=== PATIENT | female | born 1980 | race Hispanic/Latino ===

== ENCOUNTER 2017-05-27 21:18 | Emergency (ER) | payer OTHER, SELFPAY ==
[~2017-05-27 21:18] MED LIST: Sodium Chloride 0.9% 1,000 ML BAG ONE
[2017-05-27 22:40] LABS: Clarity Hazy (Clear); Glucose, Urine (Dipstick) Negative (Negative); Leukocyte Negative (Negative); Nitrite Negative (Negative); Protein, Urine (Dipstick) 30 mg/dL (Neg-Trace)
[2017-05-27 22:41] LABS: Bilirubin Negative (Negative); Blood, Urine Negative (Negative)
[2017-05-27 22:43] LABS: Bacteria/HPF Rare-Few HPF (None Seen); RBC/HPF 0-3 HPF (0-3); Squamous Epithelial 0-3 HPF (0-3); WBC/HPF None Seen HPF (0-3)
[2017-05-27 22:48] LABS: #Basophils 0.1 thou/uL (0.0-0.2); #Eosinphils 0.1 thou/uL (0.0-0.7); #Lymphocytes 3.2 thou/uL (1.20-3.40); #Monocytes 0.5 thou/uL (0.11-0.59); #Neutrophils 7.4 thou/uL (1.40-6.50); %Basophils 0.8 % (0.0-1.0); %Eosinophils 0.6 % (0.0-10.0); %Lymphocytes 28.4 % (21.0-51.0); %Monocytes 4.1 % (0.0-10.0); %Neutrophils 66.1 % (42.0-75.0); Hemoglobin 13.3 g/dL (12.0-16.0); Mean Corpuscular HGB CONC 34.5 g/dL (32.0-36.0); Mean Corpuscular Hemoglobin 32.7 pg (27.0-31.0); Mean Corpuscular Volume 94.9 fl (81.0-99.0); Mean Platelet Volume 8.1 fL (7.4-10.4); Platelet Count 182 thou/uL (130-400); RBC Distribution Width 11.7 % (11.5-14.5); Red Blood Cell (RBC) Count 4.08 mill/uL (4.20-5.40); White Blood Cell (WBC) Count 11.2 thou/uL (4.8-10.8)
--- NOTE | 2017-05-27 22:51 | RAD ---
PORTABLE UPRIGHT FRONTAL CHEST RADIOGRAPH: Date: 05-27-17 Comparison: 05-24-11 History: Upper left abdominal pain. FINDINGS: Lungs are clear. Heart and mediastinal contours unremarkable. IMPRESSION: No acute findings. POS: [facility]
[2017-05-27] MEDS ORDERED: Ketorolac Tromethamine 30 MG/ML VIAL ONE (22:54)
[2017-05-27] MEDS ORDERED: Metoclopramide HCl 10 MG/2 ML VIAL ONE (22:54)
[2017-05-27] MEDS ORDERED: Ondansetron HCl/PF 4 MG/2 ML Vial ONE (22:54)
[2017-05-27 22:58] LABS: BHCG - Serum Negative (NEGATIVE); Pregs Control Background? CLEAR/WHITE (CLR/WHITE); Pregs Control Bar Appear? YES (CONTROL BAR)
[2017-05-27 23:13] LABS: ALT (SGPT) 18 U/L (8-55); AST (SGOT) 19 U/L (5-34); Albumin 4.1 g/dL (3.5-5.0); Alkaline Phosphatase 69 U/L (40-150); Anion Gap 17 mmol/L (10-20); BUN (Urea Nitrogen) 10 mg/dL (7.0-18.7); Bilirubin, Total 0.5 mg/dL (0.2-1.2); Calc. Creatinine Clearance 0 mL/min (70-130); Calcium 8.7 mg/dL (7.8-10.44); Carbon Dioxide 19 mmol/L (22-29); Chloride 105 mmol/L (98-107); Estimated GFR-MDRD Greater than 90; Globulin 4.4 g/dL (2.4-3.5); Glucose 86 mg/dL (70-105); Lipase 5 U/L (8-78); Potassium 3.4 mmol/L (3.5-5.1); Protein, Total 8.5 g/dL (6.0-8.3); Sodium 138 mmol/L (136-145)
[2017-05-27] MEDS ORDERED: metroNIDAZOLE 500 MG/100 ML BAG ONE (23:39)
[2017-05-27] MEDS ORDERED: Ciprofloxacin Lactate/D5W 400 mg/200 ml Premix ONE (23:39)
[2017-05-28] MEDS ORDERED: metroNIDAZOLE 250 MG TAB ONE (00:45)
== END 2017-05-28 00:58 | disposition home or self-care (01) ==
LOC: MADERS 21:18
DX: K57.92 Diverticulitis of intestine, part unspecified, without perforation or abscess without bleeding (principal); F17.210 Nicotine dependence, cigarettes, uncomplicated
CPT/HCPCS: 71010; 80053; 81001; 82150; 83690; 84703; 85025; 86140; 87086; 96361; 96365; 96375; J0744; J1885; J2405; J2765; J7050

== ENCOUNTER 2018-06-11 13:45 | Emergency (ER) | payer SELFPAY ==
[~2018-06-11 13:45] MED LIST changes: +Iopamidol 370 76% 100 ML VIAL ONE
[2018-06-11 14:39] LABS: Bilirubin Negative (Negative); Blood, Urine Negative (Negative); Clarity Clear (Clear); Glucose, Urine (Dipstick) Negative (Negative); Leukocyte Negative (Negative); Nitrite Negative (Negative); Protein, Urine (Dipstick) Negative (Neg-Trace); Urobilinogen 0.2 mg/dL (0.2-1.0)
[2018-06-11 14:46] LABS: #Eosinphils 0.1 thou/uL (0.0-0.7); #Monocytes 0.4 thou/uL (0.11-0.59); #Neutrophils 5.5 thou/uL (1.40-6.50); %Basophils 0.4 % (0.0-1.0); %Eosinophils 0.7 % (0.0-10.0); %Lymphocytes 24.8 % (21.0-51.0); %Monocytes 4.9 % (0.0-10.0); %Neutrophils 69.2 % (42.0-75.0); Hemoglobin 13.5 g/dL (12.0-16.0); Mean Corpuscular HGB CONC 33.2 g/dL (32.0-36.0); Mean Corpuscular Hemoglobin 30.1 pg (27.0-31.0); Mean Corpuscular Volume 90.7 fL (78.0-98.0); Platelet Count 263 thou/uL (130-400); RBC Distribution Width 12.4 % (11.5-14.5); Red Blood Cell (RBC) Count 4.49 mill/uL (4.20-5.40); White Blood Cell (WBC) Count 7.9 thou/uL (4.8-10.8)
[2018-06-11 14:57] LABS: ALT (SGPT) 19 U/L (8-55); AST (SGOT) 14 U/L (5-34); Albumin 4.1 g/dL (3.5-5.0); Alkaline Phosphatase 64 U/L (40-150); Anion Gap 15 mmol/L (10-20); BUN (Urea Nitrogen) 11 mg/dL (7.0-18.7); Bilirubin, Total 0.4 mg/dL (0.2-1.2); Calc. Creatinine Clearance 0 mL/min (70-130); Calcium 9.3 mg/dL (7.8-10.44); Carbon Dioxide 22 mmol/L (22-29); Chloride 107 mmol/L (98-107); Estimated GFR-MDRD Greater than 90; Globulin 3.8 g/dL (2.4-3.5); Glucose 85 mg/dL (70-105); Lipase 6 U/L (8-78); Potassium 3.6 mmol/L (3.5-5.1); Protein, Total 7.9 g/dL (6.0-8.3); Sodium 140 mmol/L (136-145)
[2018-06-11] MEDS ORDERED: Ketorolac Tromethamine 30 MG/ML VIAL ONE (15:23)
[2018-06-11] MEDS ORDERED: Ondansetron HCl/PF 4 MG/2 ML Vial ONE (15:23)
--- NOTE | 2018-06-11 15:41 | CT ---
CT ABDOMEN WITH CONTRAST CT PELVIS WITH CONTRAST: DATE: 06/11/18 HISTORY: 38-year-old female with left lower quadrant abdominal pain for two days. "History of gastrointestinal disease and diverticulitis." COMPARISON: 05/24/11. TECHNIQUE: IV injection of iodinated contrast media: 90 mL of Isovue. Oral contrast media: Not administered. FINDINGS: Lung bases are grossly clear. The abdominal aorta, liver, kidneys, adrenals, pancreas, and spleen, ar e normal. Again noted are the multiple mildly enlarged left para-aortic retroperitoneal lymph nodes i n a vertical array, at least five of them, from just inferior to the takeoff of the left renal artery , to the level of the proximal portion of the left common iliac artery. They all have fatty guilherme, and they have not changed in seven years, indicating that they are benign. There is no small bowel dilat ion. There is currently enlargement of an approximately 7 cm length of sigmoid colon which is diffuse ly thickened to short axis dimensions of approximately 4 x 4 cm, with effacement of the lumen. This s egment was also previously thickened when it was involved by acute diverticulitis, but currently, the re is only mild adjacent fat stranding. Numerous diverticula are present in this segment of sigmoid c olon as well as throughout the descending colon. The rest of the sigmoid colon distal to the thickene d segment is collapsed. Whereas previously there was a small amount of free fluid in the posterior, d ependent aspect of the intrapelvic cavity, there is currently only a minimal amount of such free flui d. The urinary bladder is decompressed. The uterus is absent. The appendix is normal. The prominent l eft ovary at the left pelvic inlet abutting the junction between the descending colon and sigmoid col on, is again demonstrated. IMPRESSION: 1. A segment of the sigmoid colon is once again thickened, but the appearance is otherwise diffe rent from 2011, in that there is currently less surrounding fat stranding, which is unusual for diver ticulitis. Although this could again represent an acute episode of diverticulitis, colonoscopy or sig moidoscopy is recommended to rule out the possibility of colon cancer now. 2. Extensive diverticulosis throughout the descending colon and sigmoid colon. Code T JN Randal POS: [facility]
== END 2018-06-11 16:25 | disposition home or self-care (01) ==
LOC: MADERS 13:45
DX: K57.32 Diverticulitis of large intestine without perforation or abscess without bleeding (principal); F17.210 Nicotine dependence, cigarettes, uncomplicated
CPT/HCPCS: 74177; 80053; 81003; 83690; 85025; 96361; 96374; 96375; J1885; J2405; J7050

== ENCOUNTER 2019-01-29 15:42 | Emergency (ER) | payer SELFPAY | END 2019-01-29 17:05 | disposition home or self-care (01) | LOC: MADERS 15:42 | DX: B34.9 Viral infection, unspecified (principal); F17.210 Nicotine dependence, cigarettes, uncomplicated | CPT/HCPCS: 87081; 87430; 87804; 99283 ==

== ENCOUNTER 2021-06-29 20:42 | Emergency (ER) | payer SELFPAY ==
[2021-06-29] MEDS ORDERED: Acetaminophen/Codeine 30-300mg Tablet ONE (21:06)
[2021-06-29] MEDS ORDERED: Benzonatate 100 MG CAP ONE (21:07)
[2021-06-29] MEDS ORDERED: Ondansetron ODT 4 MG TAB ONE (21:07)
[2021-06-29] MEDS ORDERED: Dexamethasone 10 MG/ML VIAL ONE (21:07)
== END 2021-06-29 21:17 | disposition home or self-care (01) ==
LOC: MADERS 20:42
DX: J20.8 Acute bronchitis due to other specified organisms (principal); F17.210 Nicotine dependence, cigarettes, uncomplicated
CPT/HCPCS: 99284; J1100; Q0162